=== PATIENT | female | born 1935 | race Caucasian/White ===

== ENCOUNTER 2018-02-14 08:17 | Observation (INO) ==
[2018-02-14] MEDS ORDERED: Aspirin 81 MG TAB.CHEW PO ONE (08:34)
--- NOTE | 2018-02-14 08:34 | Emergency Department Note ---
Disposition Clinical Impression: Atypical chest pain, Left bundle branch block (LBBB) on electrocardiogram, HTN (hypertension), CAD (coronary artery disease) Disposition: Admitted As Inpatient Condition: Good Referrals: Anand Gomes MD [Primary Care Provider] - Forms: ED Satisfaction Letter Time of Disposition: 09:56 Chest Pain HPI - General Chief Complaint: ED Chest Pain Stated Complaint: chest heaviness Time Seen by Provider: 02/14/18 08:29 Source: patient Limitations: no limitations - History of Present Illness Pt complaint: chest pain Onset (ago): week(s) (1) Duration: constant Onset: during rest Pain Location: left chest Severity: moderate Severity scale (1-10): 6 Quality: heaviness, sharp Improves with: nothing Worsens with: nothing Context: recent illness (Has had cough runny nose congestion.) Associated symptoms: Reports: cough. Denies: nausea, vomiting, diaphoresis, sense of impending doom, palpitations, fever - Related Data Home Medications Medication Instructions Recorded Confirmed Benazepril HCl [Lotensin] 20 mg PO DAILY 12/16/15 02/14/18 Colesevelam HCl [Welchol] 625 mg PO BID 12/16/15 02/14/18 HYDROcodone/Acet 10/325 mg [[place] 1 tab PO Q4H PRN 12/16/15 02/14/18 10-325 mg] LORazepam [Lorazepam] 2 mg PO DAILY PRN 12/16/15 02/14/18 Omeprazole [PriLOSEC] 20 mg PO DAILY 12/16/15 02/14/18 amLODIPine [Norvasc] 5 mg PO DAILY 12/16/15 02/14/18 traZODone [TraZODone] 50 - 100 mg PO HS PRN 12/16/15 02/14/18 Gabapentin [Neurontin] 300 mg PO DAILY 09/20/16 02/14/18 Hydroxychloroquine [Plaquenuil] 200 mg PO BID 09/20/16 02/14/18 Ropinirole HCl [Requip] 0.5 mg PO QPM 09/20/16 02/14/18 Zoloft 50 mg PO DAILY 11/26/16 02/14/18 Folic Acid 1 mg PO DAILY 01/30/17 02/14/18 Methotrexate [Otrexup] 2.5 mg PO DAILY 01/30/17 02/14/18 Previous Rx's Medication Instructions Recorded Aspirin 81 mg PO DAILY #30 tab.chew 09/22/16 Isosorbide MONOnitrate (24 HR) 60 mg PO DAILY #30 tab.er.24h 09/22/16 [Imdur] Metoprolol XL (24 HR) Succ [Toprol 12.5 mg PO DAILY #30 tab.er.24h 09/22/16 XL] Furosemide [Lasix] 20 mg PO DAILY #7 tablet 01/30/17 Allergies Allergy/AdvReac Type Severity Reaction Status Date / Time acetaminophen [From Percocet] Allergy Rash Verified 01/30/17 11:20 Amoxicillin [From Augmentin] Allergy Rash Verified 01/30/17 11:20 ceftriaxone [From Rocephin] Allergy Rash Verified 01/30/17 11:20 clavulanic acid Allergy Rash Verified 01/30/17 11:20 [From Augmentin] duloxetine [From Cymbalta] Allergy Dizziness Verified 01/30/17 11:20 egg Allergy Nausea Verified 01/30/17 11:20 Oxycodone [From Percocet] Allergy Rash Verified 01/30/17 11:20 All systems ED: reviewed and negative except as stated. Constitutional: Denies: fever, chills ENT ED: Denies: congestion Cardiovascular: Reports: chest pain. Denies: palpitations Respiratory: Reports: cough Gastrointestinal: Denies: abdominal pain, nausea, vomiting Musculoskeletal: Denies: back pain Integumentary: Denies: rash Neurological: Denies: headache, weakness Chest Pain PMH - Past Medical History Medical history: Reports: arthritis, cancer, hyperlipidemia, hypertension, myocardial infarction, other Surgical history: Reports: appendectomy, breast surgery (Mastectomy), cholecystectomy, hysterectomy, knee replacement (Bilateral), other ( Tonsillectomy) Psychiatric history: Reports: anxiety, depression - Social History Smoking Status: Never smoker Alcohol use: Reports: none Drug use: Reports: none Physical Exam - General Limitations: no limitations General appearance: alert - Eye Eye exam: Present: normal appearance, PERRL, EOMI - ENT ENT exam: normal exam, normal oropharynx, mucous membranes moist, mucous membranes dry, TM's normal bilaterally - Neck Neck exam: Present: full ROM, other (No JVD). Absent: tenderness - Respiratory Respiratory exam: Present: other (Breath sounds diminished bilaterally otherwise clear) - Abdominal Exam Abdominal exam: Present: soft, Non-Tender, tenderness, normal bowel sounds. Absent: guarding, rebound - Extremities Exam Extremities exam: Absent: tenderness, calf tenderness - Neurological Exam Neurological exam: Present: alert, oriented X3, CN II-XII intact - Psychiatric Psychiatric exam: Present: normal affect - Skin Skin exam: Present: warm, intact. Absent: rash Course Course Narrative: Discussed the options of care with the patient. She was nothing but medical therapy. She did have a cast in August 2016 which showed extensive disease. She refuse bypass at that time. Does have a high heart score. I did discuss with Dr. Cochran who does agree to admit the patient. Again she states that she was nothing but medical therapy. Vital Signs Temperature 98.8 F 02/14/18 08:22 Pulse Rate 85 02/14/18 08:22 Respiratory Rate 18 02/14/18 08:22 Blood Pressure 175/82 02/14/18 08:22 O2 Sat by Pulse Oximetry 96 02/14/18 08:22 Temperature 98.8 F 02/14/18 08:22 Pulse Rate 77 02/14/18 09:50 Respiratory Rate 16 02/14/18 09:50 Blood Pressure 132/89 02/14/18 09:50 O2 Sat by Pulse Oximetry 94 02/14/18 09:50 Oxygen Delivery Oxygen Delivery Room Air Chest Pain - Lab Data Result diagrams: 02/14/18 08:46 02/14/18 08:46 Lab Results 02/14/18 02/14/18 02/14/18 Range/Units 08:46 08:46 08:46 WBC 5.3 (4.3-11.1) K/mcL RBC 3.34 L (3.82-4.97) M/mcL Hgb 10.2 L (11.5-15.4) g/dL Hct 30.8 L (35.3-44.9) % MCV 92.2 (83.0-100.0) fL MCH 30.5 (28.0-33.3) pg MCHC 33.1 (31.6-35.5) g/dL RDW 14.1 (11.5-14.5) % Plt Count 132 L (140-400) K/mcL MPV 9.6 (9.4-12.4) fL Immature Gran % 0.2 (0-4) % Seg Neutrophils % 63.5 % Lymphocytes % 26.9 % Monocytes % 6.2 % Eosinophils % 2.4 % Basophils % 0.8 % Neutrophils # 3.4 (1.6-8.9) K/mcL Lymphocytes # 1.4 (0.6-4.6) K/mcL Monocytes # 0.3 (0.0-1.3) K/mcL Eosinophils # 0.1 (0.0-0.6) K/mcL Basophils # 0.0 (0.0-0.2) K/mcL PT 12.4 H (9.4-12.1) Seconds INR 1.1 APTT 31.5 (26.0-36.0) Seconds Sodium 139 (136-145) mEq/L Potassium 3.5 (3.5-5.1) mEq/L Chloride 108 H (98-107) mEq/L Carbon Dioxide 23 (23-29) mEq/L BUN 14 (8-23) mg/dL Creatinine 0.81 (0.60-1.20) mg/dL Est GFR ( Amer) > 60 (> 60) Est GFR (Non-Af Amer) > 60 (> 60) BUN/Creatinine Ratio 17 (6-26) Glucose 108 H (70-105) mg/dL Calculated Osmolality 289 (280-300) Calcium 9.2 (8.6-10.3) mg/dL Troponin I 0.05 H* (< 0.04) ng/mL - Radiology Data Radiology results reviewed: Yes I reviewed the patient's radiology results. - EKG Data EKG attestation: Yes I reviewed and interpreted this EKG. EKG results narrative: EKG sinus rhythm, rate of 92.. Interval .127 QRS .169 axis -[address] there is no acute [address] T wave change. Compared to hold EKG she does have a left bundle branch block which she had in January 2017. Heart Score - Score History: Slightly Suspicious EKG: Non Specific repolarisation Disturbance Age: Greater than 65 Risk Factors: Equal/Greater than 3 risk factor or history of atherosclerotic disease
[2018-02-14 08:56] LABS: Basophils % 0.8 %; Eosinophils # 0.1 K/mcL (0.0-0.6); Eosinophils % 2.4 %; Hematocrit 30.8 % (35.3-44.9); Hemoglobin 10.2 g/dL (11.5-15.4); Immature Granulocytes % 0.2 % (0-4); Lymphocytes # 1.4 K/mcL (0.6-4.6); Lymphocytes % 26.9 %; Mean Corpuscular HGB Conc 33.1 g/dL (31.6-35.5); Mean Corpuscular Hemoglobin 30.5 pg (28.0-33.3); Mean Corpuscular Volume 92.2 fL (83.0-100.0); Mean Platelet Volume 9.6 fL (9.4-12.4); Monocytes # 0.3 K/mcL (0.0-1.3); Monocytes % 6.2 %; Neutrophils # 3.4 K/mcL (1.6-8.9); Platelet Count 132 K/mcL (140-400); Red Blood Count 3.34 M/mcL (3.82-4.97); Red Cell Distribution Width 14.1 % (11.5-14.5); Segmented Neutrophils % 63.5 %
[2018-02-14 09:11] LABS: INR 1.1; Prothrombin Time 12.4 Seconds (9.4-12.1)
[2018-02-14 09:13] LABS: Activated Partial Thrombo Time 31.5 Seconds (26.0-36.0)
[2018-02-14 09:24] LABS: BUN/Creatinine Ratio 17 (6-26); Blood Urea Nitrogen 14 mg/dL (8-23); Calcium 9.2 mg/dL (8.6-10.3); Carbon Dioxide 23 mEq/L (23-29); Chloride 108 mEq/L (98-107); Glucose 108 mg/dL (70-105); Osmolality,Calculated 289 (280-300); Potassium 3.5 mEq/L (3.5-5.1); Sodium 139 mEq/L (136-145); eGFR For African Americans > 60 (> 60); eGFR For Non-African Americans > 60 (> 60)
[2018-02-14] MEDS ORDERED: Naloxone 0.4 MG/ML INJ IVP PRN (10:12)
[2018-02-14] MEDS ORDERED: traZODone 50 MG TABLET PO PRN (10:12)
[2018-02-14] MEDS ORDERED: *HR* LORazepam 1 MG TABLET PO PRN (10:12)
[2018-02-14 12:00] VITALS: BP 142/62
--- NOTE | 2018-02-14 13:53 | Electrocardiograph Report ---
[address] [place], [place] [address] Test Date: 2018-02-14 Pat Name: Jillian Mark Department: [id number] Room: [facility] Gender: F Packaging Sales: [id number] : 1935 Requested By: Louie Woody Order Number: [id number] Reading MD: Peyton Stokes Measurements Intervals [place] Rate: 92 P: 2 AK: 127 QRS: -5 QRSD: 169 T: 163 QT: 429 QTc: 479 Interpretive Statements SINUS RHYTHM WITH VENTRICULAR PREMATURE COMPLEXES LEFT BUNDLE BRANCH BLOCK Electronically Signed On 02-14-2018 13:51:28 EDT by Peyton Stokes
--- NOTE | 2018-02-14 17:36 | Internal Med History&Physical ---
Date of Encounter: 02/14/18 Time of Encounter: 16:50 Assessment and Plan (1) Chest pain Current visit: Yes Status: Acute Initial troponin in ER was 0.05 which is consistent with previous troponins since 09/20/2016. She has been admitted to [facility] telemetry with serial troponins ordered. Qualifiers: Chest pain type: unspecified Qualified Code(s): R07.9 - Chest pain, unspecified Internal Medicine - H&P: HPI Chief complaint: Chest discomfort Admitted From: Emergency Dept History of present illness: Ms. Mark is a 82 year old female who came to emergency room stating she had ongoing discomfort in her chest that started 2-3 months ago. She describes it as a heaviness in her upper chest seems to worsen with activity. She has not used any nitroglycerin pills. She states it is now occurring at rest. She decided today to seek medical attention so came to emergency room. She was evaluated and admitted to [facility] for ongoing care needs. Her cardiovascular history is significant for hypertension. She has known ASHD with heart catheter 09/20/2016 showing 40% stenosis in LMCA, 60% stenosis in proximal LAD, 80% stenosis in proximal circumflex and 40% stenosis in mid RCA. Iliofemoral angiography runoff showed no significant lesions distally. She states she was recommended to have CABG surgery but declined at the time. She reports she is now willing to have surgery. She denies past SC DVT or pulmonary embolus. Echocardiogram 09/21/2016 showed LVEF of 55%. There was increased thickness of the interventricular septum and posterior wall at 1.50 cm each. There was mild diastolic dysfunction and moderate aortic regurgitation present. Past Med Surg Social Fam HX - Past Medical History Medical history: arthritis, cancer, hyperlipidemia, hypertension, myocardial infarction, other Psychiatric history: anxiety, depression - Past Surgical History Surgical History: appendectomy, breast surgery, cholecystectomy, hysterectomy, knee replacement, other - Social History Smoking Status: Never smoker Smokeless Tobacco Status: No Alcohol use: none Drug use: none - Family History Mother Living Status: Hx Family Cancer: Yes (Breast) Father Living Status: Hx Family Cancer: Yes (Lung) Internal Medicine - H&P: Meds Benazepril HCl [Lotensin] 20 mg PO DAILY 12/16/15 [History] Colesevelam HCl [Welchol] 625 mg PO BID 12/16/15 [History] HYDROcodone/Acet 10/325 mg [[place] 10-325 mg] 1 tab PO Q4H PRN 12/16/15 [History] LORazepam [Lorazepam] 2 mg PO DAILY PRN 12/16/15 [History] Omeprazole [PriLOSEC] 20 mg PO DAILY 12/16/15 [History] amLODIPine [Norvasc] 5 mg PO DAILY 12/16/15 [History] traZODone [TraZODone] 50 - 100 mg PO HS PRN 12/16/15 [History] Gabapentin [Neurontin] 300 mg PO DAILY 09/20/16 [History] Hydroxychloroquine [Plaquenuil] 200 mg PO BID 09/20/16 [History] Ropinirole HCl [Requip] 0.5 mg PO QPM 09/20/16 [History] Aspirin 81 mg PO DAILY #30 tab.chew 09/22/16 [Rx] Isosorbide MONOnitrate (24 HR) [Imdur] 60 mg PO DAILY #30 tab.er.24h 09/22/16 [ Rx] Metoprolol XL (24 HR) Succ [Toprol XL] 12.5 mg PO DAILY #30 tab.er.24h 09/22/16 [Rx] Zoloft 50 mg PO DAILY 11/26/16 [History] Folic Acid 1 mg PO DAILY 01/30/17 [History] Furosemide [Lasix] 20 mg PO DAILY #7 tablet 01/30/17 [Rx] Methotrexate [Otrexup] 12.5 mg PO TU 01/30/17 [History] 3 Allergy/AdvReac Type Severity Reaction Status Date / Time acetaminophen [From Percocet] Allergy Rash Verified 01/30/17 11:20 Amoxicillin [From Augmentin] Allergy Rash Verified 01/30/17 11:20 ceftriaxone [From Rocephin] Allergy Rash Verified 01/30/17 11:20 clavulanic acid Allergy Rash Verified 01/30/17 11:20 [From Augmentin] duloxetine [From Cymbalta] Allergy Dizziness Verified 01/30/17 11:20 egg Allergy Nausea Verified 01/30/17 11:20 Oxycodone [From Percocet] Allergy Rash Verified 01/30/17 11:20 All Systems PM: A 10-system review of systems was performed and is negative for pertinent findings except as documented above in the HPI. Review of systems: Gen.: She states her weight has been stable the past few months Cardiovascular: As per history of present illness Respiratory: She is a lifelong nonsmoker and has no known chronic lung disease GI: She has GERD. She denies disorders of her liver gallbladder or exocrine pancreas : She denies hematuria dysuria or kidney stones Neurologic: She denies large distribution strokes or seizures. Endocrine: She denies diabetes thyroid disease or hyperlipidemia Hematology/oncology: She was diagnosed with breast cancer in 1989 and had lumpectomy. There was recurrence of cancer and she had left mastectomy which was curative in 1992. She has had no other malignancies. She had anemia on blood work in emergency room. Psychiatric: She has anxiety and depression but denies other mental health issues [place] skeletal: She has DJD and rheumatoid arthritis. - Constitutional Vitals: Temp Pulse Resp BP Pulse Ox 98.0 F 61 16 142/62 94 02/14/18 11:59 02/14/18 11:59 02/14/18 11:59 02/14/18 11:59 02/14/18 09:50 Exam: Gen.: She is a well of up well-nourished female who appears in no acute distress. HEENT: Head is atraumatic and normocephalic. Eyes: EOMI. There is no scleral icterus. Mouth: Mucosa is moist. Neck: Supple and nontender. There is no thyromegaly or adenopathy noted. Heart: Regular without murmurs gallops or ectopics Lungs: No wheezes or crackles are heard. Abdomen: Soft and nontender. Exam is limited because she is in the seated position. Extremities: There is no cyanosis edema or clubbing noted. Dorsalis pedis and posttibial pulses are 1-2 over 2 bilaterally. Neurologic: Mental status: She is talkative and a good historian. Cranial nerves: Smile is symmetric. Forehead wrinkles bilaterally. Tongue protrudes midline. EOMI. Motor: There is no pronator drift. Cerebellar: Finger to nose is intact bilaterally. Skin: Warm and dry Internal Med - H&P Results - Labs CBC & Chem 7: 02/14/18 08:46 02/14/18 08:46 Labs: Cardiac Enzymes 05/21/18 05/21/18 Range/Units 10:56 16:53 Troponin I 0.06 H* 0.10 H* (< 0.04) ng/mL - VTE Reasons for not Prescribing Prophylaxis: Treatment not Indicated - Low risk for VTE
[2018-02-14] MEDS ORDERED: Aspirin 325 MG TABLET PO STA (17:38)
[2018-02-14] MEDS ORDERED: rOPINIRole 0.25 MG TABLET PO SCH (18:00)
--- NOTE | 2018-02-14 18:02 | Discharge Summary ---
Date of Encounter: 02/14/18 Time of Encounter: 17:55 - Discharge Diagnosis (1) NSTEMI (non-ST elevated myocardial infarction) Priority: Primary Status: Acute Hospital course: Ms. Mark is a 82 year old female who came to emergency room stating she had ongoing discomfort in her chest that started 2-3 months ago. She describes it as a heaviness in her upper chest seems to worsen with activity. She has not used any nitroglycerin pills. She states it is now occurring at rest. She decided today to seek medical attention so came to emergency room. She was evaluated and admitted to [facility] for ongoing care needs. Initial orders were written by the emergency room physician. I saw her on February 14 and performed a history and physical. When I saw her she still complained of chest discomfort. Repeat troponin had increased to 0.06 then 0.10. I felt there was significant chance this was STEMI in progress. EKG in emergency room showed left bundle branch block and was not repeated. I discussed her clinical status with her and she chose to go [facility] for ongoing care needs. Contact was made with [place] transfer center and she will be transferred to the emergency room there for ongoing care needs. - Time Spent with Patient Total time spent providing and/or coordinating discharge services: - Discharge Medications Home Medications: Benazepril HCl [Lotensin] 20 mg PO DAILY 12/16/15 [History] Colesevelam HCl [Welchol] 625 mg PO BID 12/16/15 [History] HYDROcodone/Acet 10/325 mg [[place] 10-325 mg] 1 tab PO Q4H PRN 12/16/15 [History] LORazepam [Lorazepam] 2 mg PO DAILY PRN 12/16/15 [History] Omeprazole [PriLOSEC] 20 mg PO DAILY 12/16/15 [History] amLODIPine [Norvasc] 5 mg PO DAILY 12/16/15 [History] traZODone [TraZODone] 50 - 100 mg PO HS PRN 12/16/15 [History] Gabapentin [Neurontin] 300 mg PO DAILY 09/20/16 [History] Hydroxychloroquine [Plaquenuil] 200 mg PO BID 09/20/16 [History] Ropinirole HCl [Requip] 0.5 mg PO QPM 09/20/16 [History] Aspirin 81 mg PO DAILY #30 tab.chew 09/22/16 [Rx] Isosorbide MONOnitrate (24 HR) [Imdur] 60 mg PO DAILY #30 tab.er.24h 09/22/16 [ Rx] Metoprolol XL (24 HR) Succ [Toprol XL] 12.5 mg PO DAILY #30 tab.er.24h 09/22/16 [Rx] Zoloft 50 mg PO DAILY 11/26/16 [History] Folic Acid 1 mg PO DAILY 01/30/17 [History] Furosemide [Lasix] 20 mg PO DAILY #7 tablet 01/30/17 [Rx] Methotrexate [Otrexup] 12.5 mg PO TU 01/30/17 [History] Allergies/Adverse Reactions: 3 Allergy/AdvReac Type Severity Reaction Status Date / Time acetaminophen [From Percocet] Allergy Rash Verified 01/30/17 11:20 Amoxicillin [From Augmentin] Allergy Rash Verified 01/30/17 11:20 ceftriaxone [From Rocephin] Allergy Rash Verified 01/30/17 11:20 clavulanic acid Allergy Rash Verified 01/30/17 11:20 [From Augmentin] duloxetine [From Cymbalta] Allergy Dizziness Verified 01/30/17 11:20 egg Allergy Nausea Verified 01/30/17 11:20 Oxycodone [From Percocet] Allergy Rash Verified 01/30/17 11:20 Date of admission: 02/14/18 09:59 Primary care physician: Anand Gomes MD - Constitutional Vitals: Temp Pulse Resp BP Pulse Ox 98.0 F 61 16 142/62 94 02/14/18 11:59 02/14/18 11:59 02/14/18 11:59 02/14/18 11:59 02/14/18 09:50 - Patient Status Disposition: Transfer Other Condition: Good - Discharge Instructions - VTE Reasons for not Prescribing Prophylaxis: Treatment not Indicated - Low risk for VTE
[2018-02-14] MEDS: Nitroglycerin 0.4 MG TAB.SUBL SL PRN ×2 (18:08→18:15)
[2018-02-15] MEDS ORDERED: Isosorbide MONOnitrate (24 HR) 60 MG TAB.ER.24H PO SCH (09:00)
[2018-02-15] MEDS ORDERED: amLODIPine 5 MG TABLET PO SCH (09:00)
[2018-02-15] MEDS ORDERED: Aspirin 81 MG TAB.CHEW PO SCH (09:00)
[2018-02-15] MEDS ORDERED: Folic Acid 1 MG TABLET PO SCH (09:00)
[2018-02-15] MEDS ORDERED: Gabapentin 300 MG CAPSULE PO SCH (09:00)
[2018-02-15] MEDS ORDERED: *HR* Methotrexate 2.5 MG TABLET PO SCH ×2 (09:00)
[2018-02-15] MEDS ORDERED: Lisinopril 20 MG TABLET PO SCH (09:00)
[2018-02-15] MEDS ORDERED: Metoprolol XL (24 HR) Succ 25 MG TAB.ER.24H PO SCH (09:00)
[2018-02-15] MEDS ORDERED: Furosemide 20 MG TABLET PO SCH (09:00)
[2018-02-15 14:16] LABS: Troponin I 0.05 ng/mL (< 0.04)
== END 2018-02-14 18:44 | disposition short-term general hospital (02) ==
LOC: INPPIK 08:17 → EMEROOPIK 08:17 → INPPIK 10:28
PROVIDERS: ADMIT Internal Medicine; ATTEND Internal Medicine

== ENCOUNTER 2020-07-20 08:54 | Observation (INO) ==
[2020-07-20 09:26] LABS: Bilirubin,Urine Negative (Negative); Blood,Urine Negative (Negative); Clarity,Urine Clear (Clear); Color,Urine Yellow (Yellow); Glucose,Urine (UA) Normal (Normal); Ketones,Urine Negative (Negative); Leukocyte Esterase,Urine Moderate (Negative); Nitrite,Urine Negative (Negative); PH,Urine 5.5 pH Units (5.0-8.0); Protein,Urine Negative (Neg-Trace); Specific Gravity,Urine 1.015 (1.010-1.025); Urobilinogen,Urine Normal (Normal)
[2020-07-20 09:36] LABS: Basophils % 0.4 %; Eosinophils # 0.2 K/mcL (0.0-0.6); Eosinophils % 1.8 %; Hematocrit 32.7 % (35.3-44.9); Hemoglobin 10.5 g/dL (11.5-15.4); Immature Granulocytes % 0.2 % (0-4); Lymphocytes # 1.8 K/mcL (0.6-4.6); Mean Corpuscular HGB Conc 32.1 g/dL (31.6-35.5); Mean Corpuscular Hemoglobin 31.3 pg (28.0-33.3); Mean Corpuscular Volume 97.3 fL (83.0-100.0); Mean Platelet Volume 9.6 fL (9.4-12.4); Monocytes # 0.5 K/mcL (0.0-1.3); Monocytes % 5.6 %; Neutrophils # 6.4 K/mcL (1.6-8.9); Platelet Count 120 K/mcL (140-400); Red Blood Count 3.36 M/mcL (3.82-4.97); Red Cell Distribution Width 14.9 % (11.5-14.5)
[2020-07-20 09:41] LABS: INR 1.1; Prothrombin Time 12.5 Seconds (9.4-12.1)
[2020-07-20 09:42] LABS: Squamous Epithelial Cell,Urine Few per hpf (None-Few)
[2020-07-20 09:43] LABS: Bacteria,Urine Few per hpf (None-Few); Mucus,Urine Few per lpf (None-Few)
[2020-07-20 09:44] LABS: Activated Partial Thrombo Time 29.6 Seconds (26.0-36.0)
[2020-07-20 09:52] LABS: BUN/Creatinine Ratio 17 (6-26); Blood Urea Nitrogen 16 mg/dL (8-23); Calcium 9.4 mg/dL (8.6-10.3); Carbon Dioxide 35 mEq/L (23-29); Chloride 102 mEq/L (98-107); Glucose 97 mg/dL (70-105); Osmolality,Calculated 293 (280-300); Potassium 4.1 mEq/L (3.5-5.1); Sodium 141 mEq/L (136-145); Troponin I < 0.03 ng/mL (< 0.04); eGFR For African Americans > 60 (> 60); eGFR For Non-African Americans 56 (> 60)
[2020-07-20] MEDS ORDERED: levoFLOXacin 750 MG/150 ML 750 MG/150 ML BAG IVPB ONE (10:04)
[2020-07-20] MEDS: 0.9 % Sodium Chloride 1,000 ML IVC SCH ×2 (10:16→18:55)
[2020-07-20] MEDS: Acetaminophen 325 MG TABLET PO PRN ×2 (13:54→21:13)
[2020-07-20] MEDS ORDERED: Naloxone 0.4 MG/ML INJ IVP PRN (13:58)
[2020-07-20] MEDS ORDERED: Ondansetron ODT 4 MG TAB.RAPDIS SL PRN (13:58)
[2020-07-20] MEDS: rOPINIRole 1 MG TABLET PO SCH ×2 (15:22→21:13)
[2020-07-20] MEDS: Cholestyramine 4 GM POWD.PACK PO SCH (15:22)
[2020-07-20] MEDS: Folic Acid 1 MG TABLET PO SCH (17:44)
[2020-07-20] MEDS: Gabapentin 300 MG CAPSULE PO SCH (17:44)
[2020-07-20] MEDS: Fluticasone Propionate Nasal 50 MCG/SPRAY BOTTLE NS SCH (18:22)
[2020-07-20] MEDS: traZODone 50 MG TABLET PO PRN (21:14)
[2020-07-20] MEDS: hydrALAZINE 25 MG TABLET PO PRN (21:14)
[2020-07-20] MEDS: Sacubitril/Valsartan 49/51 MG 1 TABLET PO SCH (21:21)
[2020-07-21 06:58] LABS: Hematocrit 33.2 % (35.3-44.9); Hemoglobin 10.8 g/dL (11.5-15.4); Mean Corpuscular HGB Conc 32.5 g/dL (31.6-35.5); Mean Corpuscular Volume 95.4 fL (83.0-100.0); Mean Platelet Volume 10.3 fL (9.4-12.4); Platelet Count 126 K/mcL (140-400); Red Blood Count 3.48 M/mcL (3.82-4.97); Red Cell Distribution Width 14.6 % (11.5-14.5); White Blood Count 9.4 K/mcL (4.3-11.1)
[2020-07-21 07:18] LABS: Alanine Aminotransferase 11 Units/L (7-52); Albumin 3.8 g/dL (3.5-5.7); Albumin/Globulin Ratio 1.2 (1.1-2.2); Alkaline Phosphatase 64 Units/L (34-104); Aspartate Amino Transferase 19 Units/L (13-39); BUN/Creatinine Ratio 17 (6-26); Bilirubin,Total 0.5 mg/dL (0.3-1.0); Blood Urea Nitrogen 12 mg/dL (8-23); Calcium 9.3 mg/dL (8.6-10.3); Carbon Dioxide 29 mEq/L (23-29); Chloride 103 mEq/L (98-107); Globulin 3.2 g/dL (2.4-3.5); Glucose 102 mg/dL (70-105); Magnesium 1.6 mg/dL (1.6-2.6); Osmolality,Calculated 290 (280-300); Potassium 3.9 mEq/L (3.5-5.1); Sodium 140 mEq/L (136-145); eGFR For African Americans > 60 (> 60); eGFR For Non-African Americans > 60 (> 60)
[2020-07-21] MEDS: rOPINIRole 1 MG TABLET PO SCH ×3 (08:25→20:10)
[2020-07-21] MEDS: Aspirin Enteric Coated 81 MG Tablet PO SCH (08:25)
[2020-07-21] MEDS: Metoprolol XL (24 HR) Succ 25 MG TAB.ER.24H PO SCH (08:25)
[2020-07-21] MEDS: Acetaminophen 325 MG TABLET PO PRN (08:25)
[2020-07-21] MEDS: Fluticasone Propionate Nasal 50 MCG/SPRAY BOTTLE NS SCH (08:28)
[2020-07-21] MEDS: Isosorbide MONOnitrate (24 HR) 60 MG TAB.ER.24H PO SCH (08:28)
[2020-07-21] MEDS: Cholestyramine 4 GM POWD.PACK PO SCH ×2 (08:29→14:52)
[2020-07-21] MEDS: Sacubitril/Valsartan 49/51 MG 1 TABLET PO SCH ×2 (08:40→20:11)
[2020-07-21] MEDS ORDERED: Furosemide 40 MG TABLET PO SCH (09:00)
[2020-07-21] MEDS ORDERED: Spironolactone 25 MG TABLET PO SCH (09:00)
[2020-07-21] MEDS: Ondansetron 4 MG/2 ML VIAL IVP PRN (14:58)
[2020-07-21] MEDS: Gabapentin 300 MG CAPSULE PO SCH (17:21)
[2020-07-21] MEDS: Folic Acid 1 MG TABLET PO SCH (17:21)
[2020-07-21] MEDS: hydrALAZINE 25 MG TABLET PO PRN (20:10)
[2020-07-21] MEDS: *HR* LORazepam 1 MG TABLET PO PRN (22:26)
[2020-07-21] MEDS: traZODone 50 MG TABLET PO PRN (22:26)
[2020-07-22] MEDS: Ondansetron 4 MG/2 ML VIAL IVP PRN ×2 (02:51→08:28)
[2020-07-22] MEDS ORDERED: Nitrofurantoin (BID) 100 MG CAPSULE PO SCH (08:00)
[2020-07-22] MEDS ORDERED: Ondansetron ODT 4 MG TAB.RAPDIS SL PRN (08:19)
[2020-07-22 08:24] LABS: Basophils % 0.4 %; Eosinophils # 0.1 K/mcL (0.0-0.6); Eosinophils % 0.7 %; Hematocrit 31.8 % (35.3-44.9); Hemoglobin 10.2 g/dL (11.5-15.4); Immature Granulocytes % 0.4 % (0-4); Lymphocytes # 2.6 K/mcL (0.6-4.6); Lymphocytes % 25.8 %; Mean Corpuscular HGB Conc 32.1 g/dL (31.6-35.5); Mean Corpuscular Hemoglobin 30.8 pg (28.0-33.3); Mean Corpuscular Volume 96.1 fL (83.0-100.0); Mean Platelet Volume 9.8 fL (9.4-12.4); Monocytes # 0.7 K/mcL (0.0-1.3); Monocytes % 6.4 %; Neutrophils # 6.7 K/mcL (1.6-8.9); Platelet Count 125 K/mcL (140-400); Red Blood Count 3.31 M/mcL (3.82-4.97); Red Cell Distribution Width 14.7 % (11.5-14.5); Segmented Neutrophils % 66.3 %; White Blood Count 10.1 K/mcL (4.3-11.1)
[2020-07-22] MEDS: Aspirin Enteric Coated 81 MG Tablet PO SCH (08:45)
[2020-07-22] MEDS: rOPINIRole 1 MG TABLET PO SCH (08:45)
[2020-07-22] MEDS: Isosorbide MONOnitrate (24 HR) 60 MG TAB.ER.24H PO SCH (08:45)
[2020-07-22] MEDS: Metoprolol XL (24 HR) Succ 25 MG TAB.ER.24H PO SCH (08:45)
[2020-07-22] MEDS: Cholestyramine 4 GM POWD.PACK PO SCH (08:45)
[2020-07-22 08:46] LABS: BUN/Creatinine Ratio 19 (6-26); Blood Urea Nitrogen 14 mg/dL (8-23); Calcium 9.3 mg/dL (8.6-10.3); Carbon Dioxide 29 mEq/L (23-29); Chloride 101 mEq/L (98-107); Glucose 85 mg/dL (70-105); Osmolality,Calculated 286 (280-300); Potassium 3.8 mEq/L (3.5-5.1); Sodium 138 mEq/L (136-145); eGFR For African Americans > 60 (> 60); eGFR For Non-African Americans > 60 (> 60)
[2020-07-22] MEDS: Sacubitril/Valsartan 49/51 MG 1 TABLET PO SCH (08:58)
[2020-07-22] MEDS ORDERED: Lactobacillus 1 EACH CAP.SPRINK PO SCH (09:00)
[2020-07-22] MEDS: Fluticasone Propionate Nasal 50 MCG/SPRAY BOTTLE NS SCH (09:02)
[2020-07-22 11:29] VITALS: BP 175/54
[2020-07-22] MEDS: *HR* LORazepam 1 MG TABLET PO PRN (12:12)
== END 2020-07-22 13:15 | disposition home health service (06) ==
LOC: INPPIK 08:54 → EMEROOPIK 08:54 → INPPIK 11:58
PROVIDERS: ADMIT Family Medicine; ATTEND Family Medicine